=== PATIENT | female | born 1995 | race Caucasian/White ===

== ENCOUNTER 2019-01-05 21:01 | Emergency (ER) | payer OTHER ==
[2019-01-05] MEDS: morphine 2 MG INJ IV ×2 (21:39→22:38)
[2019-01-05] MEDS: ONDANSETRON 4 MG INJ IV ×2 (21:39→22:38)
[2019-01-05] MEDS: SOD CHLORIDE 0.9% 1,000 ML IV (21:40)
[2019-01-05] MEDS: KETOROLAC 30 MG INJ IV (22:21)
== END 2019-01-06 00:32 | disposition home or self-care (01) ==
LOC: E/R 01-06 00:32
DX: S29.012A Strain of muscle and tendon of back wall of thorax, initial encounter (principal); M62.830 Muscle spasm of back; X58.XXXA Exposure to other specified factors, initial encounter; Y92.239 Unspecified place in hospital as the place of occurrence of the external cause
CPT/HCPCS: 72072; 72100; 81025; 96374; 96375; 99284-25

== ENCOUNTER 2019-05-09 01:16 | Emergency (ER) | payer SELFPAY, OTHER ==
[2019-05-09] MEDS: METHYLPREDNISOLONE 125 MG INJ IM (01:42)
[2019-05-09] MEDS: FAMOTIDINE 20 MG TAB PO (01:42)
[2019-05-09] MEDS: LORATADINE 10 MG TAB PO (01:43)
== END 2019-05-09 02:07 | disposition home or self-care (01) ==
LOC: FTE 01:16
DX: L50.0 Allergic urticaria (principal)
CPT/HCPCS: 96372; 99284-25